=== PATIENT | male | born 1960 | race Caucasian/White ===

== ENCOUNTER 2021-07-20 11:44 | Emergency (ER) | payer MEDICAID ==
[~2021-07-20] VITALS: Ht 175.3 cm; Wt 104.8 kg
--- NOTE | 2021-07-20 12:06 | NUR ---
BIB FOR C/O DIZZINESS, LOWER BACK PAIN S/P FALLING OFF A LADDER YESTERDAY. POSTERIOR HEAD HEMATOMA NOTED. RATES LOWER BACK PAIN 04/16. DENIES N/V. IN ROOM AIR AND DENIES SOB. RESPIRATION REGULAR AND UNLABORED. WILL CONTINUE TO MONITOR THE PATIENT.
--- NOTE | 2021-07-20 12:13 | NUR ---
THE PATIENT IS TAKEN TO CT
--- NOTE | 2021-07-20 12:34 | NUR ---
THE PATIENT IS BACK FROM CT
--- NOTE | 2021-07-20 13:00 | NUR ---
CALLED DR. COLE [phone] [employer] SPEAKING WITH DR. VARMA
[2021-07-20] MEDS ORDERED: HYDROCODONE/APAP 10/325MG TABLET PO ONE (13:30)
[2021-07-20] MEDS ORDERED: HYDROCODONE/APAP 10/325MG TABLET ONE (13:37)
[2021-07-20] MEDS ORDERED: ACETAMINOPHEN ES 500 MG TABLET ONE (13:38)
[2021-07-20] MEDS ORDERED: ACETAMINOPHEN ES 500 MG TABLET PO ONE (14:00)
[2021-07-20] MEDS ORDERED: HYDR-3972 PO (14:41)
--- NOTE | 2021-07-20 15:07 | NUR ---
Patient discharged to home in stable condition. Written and verbal after care instructions given. Patient verbalizes understanding of instruction.
[2021-07-20 15:08] VITALS: BP 141/89
== END 2021-07-20 15:08 | disposition home or self-care (01) ==
LOC: ER 11:44
DX: S00.03XA Contusion of scalp, initial encounter (principal); S30.0XXA Contusion of lower back and pelvis, initial encounter; I71.4 Abdominal aortic aneurysm, without rupture; W11.XXXA Fall on and from ladder, initial encounter; Y93.89 Activity, other specified; Y92.89 Other specified places as the place of occurrence of the external cause; Y99.8 Other external cause status
CPT/HCPCS: 70450-TC; 72125-TC; 72131-TC